=== PATIENT | male | born 2005 | race Two or more races ===

== ENCOUNTER 2024-02-10 08:18 | Emergency (ER) | payer MEDICAID, OTHER ==
[~2024-02-10] VITALS: Ht 167.6 cm; Wt 63.6 kg
[2024-02-10] MEDS ORDERED: NAP500T PO (10:41)
[2024-02-10] MEDS ORDERED: CYCL-837 PO (10:41)
[2024-02-10 11:14] VITALS: BP 153/80; PULSE 78; RESP 20; O2SAT 97
[2024-02-10 11:19] VITALS: TEMP 98
[2024-02-10] MEDS: ACETAMINOPHEN 500 MG TAB PO ONE (11:19)
== END 2024-02-10 11:23 | disposition home or self-care (01) ==
LOC: EDBD 08:18 → ER 08:18
DX: R51.9 Headache, unspecified (principal); M54.2 Cervicalgia; Z79.899 Other long term (current) drug therapy; V49.9XXA Car occupant (driver) (passenger) injured in unspecified traffic accident, initial encounter; Y93.89 Activity, other specified; Y92.89 Other specified places as the place of occurrence of the external cause; Y99.8 Other external cause status